=== PATIENT | male | born 1970 | race Caucasian/White ===

== ENCOUNTER 2021-06-01 07:36 | Emergency (ER) | payer OTHER, SELFPAY ==
[2021-06-01] MEDS ORDERED: Aspirin Chewable 81 MG TAB ONE (07:48)
[2021-06-01] MEDS ORDERED: Fentanyl 100 MCG/2 ML VIAL ONE ×2 (07:48→09:23)
[2021-06-01 08:05] LABS: #Monocytes 0.7 10x3/uL (0.0-1.1); #Neutrophils 4.4 10x3/uL (1.5-8.4); %Basophils 0.3 % (0.0-2.0); %Eosinophils 0.2 % (0.0-6.0); %Lymphocytes 20.2 % (18.0-47.0); %Monocytes 10.5 % (0.0-10.0); %Neutrophils 68.2 % (40.0-75.0); Hemoglobin 14.4 g/dL (13.5-17.5); Mean Corpuscular HGB CONC 34.3 g/dL (32.0-36.0); Mean Corpuscular Hemoglobin 29.8 pg (27.0-33.0); Mean Platelet Volume 10.7 fl (7.4-10.4); Platelet Count 185 10x3/uL (150-450); RBC Distribution Width 12.5 % (11.5-14.5); Red Blood Cell (RBC) Count 4.83 10x6/uL (4.32-5.72); White Blood Cell (WBC) Count 6.5 10x3/uL (3.5-10.5)
[2021-06-01] MEDS ORDERED: Lorazepam 2 MG/ML VIAL ONE (08:06)
[2021-06-01 08:23] LABS: ALT (SGPT) 56 U/L (8-55); AST (SGOT) 39 U/L (5-34); Albumin 3.9 g/dL (3.5-5.0); Alkaline Phosphatase 102 U/L (40-110); Anion Gap 20 mmol/L (10-20); BUN (Urea Nitrogen) 25 mg/dL (8.4-25.7); Bilirubin, Total 0.6 mg/dL (0.2-1.2); CK (CPK) 44 U/L (30-200); Calc. Creatinine Clearance 0 mL/min (70-130); Calcium 8.4 mg/dL (7.8-10.44); Carbon Dioxide 21 mmol/L (22-29); Chloride 107 mmol/L (98-107); Globulin 2.5 g/dL (2.4-3.5); Glucose 168 mg/dL (70-105); Lipase 58 U/L (8-78); Protein, Total 6.4 g/dL (6.0-8.3); Sodium 144 mmol/L (136-145)
[2021-06-01] MEDS ORDERED: niCARdipine 25 MG/10 ML VIAL ONE ×2 (09:04)
[2021-06-01 10:24] LABS: SARS-CoV-2 NAA Rapid Test DETECTED (NotDetected)
== END 2021-06-01 10:12 | disposition short-term general hospital (02) ==
LOC: CSHERS 07:36
DX: U07.1 COVID-19 (principal); I71.01 Dissection of thoracic aorta; Z79.899 Other long term (current) drug therapy
CPT/HCPCS: 71275; 74174; 80053; 82550; 83690; 83880; 84484; 85025; 93005; 96374; 96375; 96376; J2060; J3010; U0002